=== PATIENT | female | born 1965 | race Caucasian/White ===

== ENCOUNTER → 2017-02-25 | Outpatient (CLI) | payer OTHER ==
[~2017-02-25] VITALS: Ht 170.2 cm; Wt 118.8 kg
[~2017-02-25] MED LIST: LIDOCAINE 2% INJ 100 MG/5 ML SDV (FOR ANES.) As Ordered ONE; NS 500 ML IV SCH; PREV15CA18 PO; PROPOFOL 200 MG/20 ML VIAL As Ordered ONE; ZOMI2.5T4 PO; fentaNYL 100 MCG/2 ML INJECTION (J3010) As Ordered ONE
--- NOTE | 2017-02-25 08:17 | ROOR ---
Patient Name: Smitha Nettles Procedure Date: 02/25/2017 7:39 AM Date of : 1965 Age: 51 Room: [facility] Gender: Female Note Status: Finalized Procedure: Upper Endoscopy + Biopsies Indications: Heartburn, Exclusion of Batista's esophagus Providers: Dainel Ortez MD Referring MD: Chauncey Reyes MD Requesting Provider: Medicines: Monitored Anesthesia Care Complications: No immediate complications. Procedure: Pre-Anesthesia Assessment: - The heart rate, respiratory rate, oxygen saturations, blood pressure, adequacy of pulmonary ventilation, and response to care were monitored throughout the procedure. The Endoscope was introduced through the mouth, and advanced to the second part of duodenum. The upper GI endoscopy was accomplished without difficulty. The patient tolerated the procedure well. Findings: The Z-line was irregular and was found 35 cm from the incisors. Multiple biopsies were obtained with cold forceps for evaluation to rule out Batista's Esophagus randomly at the gastroesophageal junction. A small hiatal hernia was present. No other significant abnormalities were identified in a careful examination of the stomach. The exam of the duodenum was otherwise normal. Impression: - Z-line irregular, 35 cm from the incisors. - Small hiatal hernia. - Multiple biopsies were obtained at the gastroesophageal junction. - The examination was otherwise normal. Recommendation: - Patient has a contact number available for emergencies. The signs and symptoms of potential delayed complications were discussed with the patient. Return to normal activities tomorrow. Written discharge instructions were provided to the patient. - High fiber diet. - Discharge patient to home. - Follow an antireflux regimen. - Continue present medications. - Await pathology results. - Telephone GI clinic for pathology results in 1 week. - Check Portal Online for Path Results.([email or web address]) - Return to referring physician. - Repeat upper endoscopy for surveillance based on pathology results. - The findings and recommendations were discussed with the patient's family. Daniel Ortez MD Daniel Ortez MD 02/25/2017 8:17:39 AM This report has been signed electronically. Number of Addenda: 0 Note Initiated On: 02/25/2017 7:39 AM Estimated Blood Loss: Estimated blood loss: none.
--- NOTE | 2017-02-25 08:21 | ROOR ---
Patient Name: Smitha Nettles Procedure Date: 02/25/2017 7:39 AM Date of : 1965 Age: 51 Room: [facility] Gender: Female Note Status: Finalized Procedure: Total Colonoscopy to Cecum + Biopsy Polypectomy Indications: High risk colon cancer surveillance: Personal history of colonic polyps, Last colonoscopy: 2013 Providers: Daniel Ortez MD Referring MD: Chauncey Reyes MD Requesting Provider: Medicines: Monitored Anesthesia Care Complications: No immediate complications. Procedure: Pre-Anesthesia Assessment: - The heart rate, respiratory rate, oxygen saturations, blood pressure, adequacy of pulmonary ventilation, and response to care were monitored throughout the procedure. The Colonoscope was introduced through the anus and advanced to the cecum, identified by appendiceal orifice and ileocecal valve. The colonoscopy was performed without difficulty. The patient tolerated the procedure well. The quality of the bowel preparation was good. Findings: The perianal and digital rectal examinations were normal. A small polyp was found in the proximal ascending colon. The polyp was sessile. The polyp was removed with a jumbo cold forceps. Resection and retrieval were complete. Scattered small-mouthed diverticula were found in the recto-sigmoid colon, sigmoid colon and descending colon. Non-bleeding internal hemorrhoids were found during retroflexion. The hemorrhoids were small and Grade I (internal hemorrhoids that do not prolapse). The exam was otherwise without abnormality on direct and retroflexion views. Impression: - One small polyp in the proximal ascending colon, removed with a jumbo cold forceps. Resected and retrieved. - Diverticulosis in the recto-sigmoid colon, in the sigmoid colon and in the descending colon. - Non-bleeding internal hemorrhoids. - The examination was otherwise normal on direct and retroflexion views. - The exam was otherwise normal to the cecum. Recommendation: - Patient has a contact number available for emergencies. The signs and symptoms of potential delayed complications were discussed with the patient. Return to normal activities tomorrow. Written discharge instructions were provided to the patient. - High fiber diet. - Discharge patient to home. - Continue present medications. - Await pathology results. - Telephone GI clinic for pathology results in 1 week. - Repeat colonoscopy in 5 years for surveillance based on pathology results. - Return to referring physician. - The findings and recommendations were discussed with the patient's family. Daniel Ortez MD Daniel Ortez MD 02/25/2017 8:21:09 AM This report has been signed electronically. Number of Addenda: 0 Note Initiated On: 02/25/2017 7:39 AM Estimated Blood Loss: Estimated blood loss: none.
[2017-02-25 08:30] VITALS: BP 121/76
== END | disposition home or self-care (01) ==
LOC: M OPP 06:58
PROVIDERS: ATTEND Internal Medicine Gastroenterology
DX: Z12.11 Encounter for screening for malignant neoplasm of colon (principal); D12.2 Benign neoplasm of ascending colon; K57.30 Diverticulosis of large intestine without perforation or abscess without bleeding; K64.0 First degree hemorrhoids; Z86.010 Personal history of colon polyps; R12 Heartburn; K22.8 Other specified diseases of esophagus; K44.9 Diaphragmatic hernia without obstruction or gangrene; M19.90 Unspecified osteoarthritis, unspecified site; G43.909 Migraine, unspecified, not intractable, without status migrainosus; R06.83 Snoring; E66.9 Obesity, unspecified; F17.210 Nicotine dependence, cigarettes, uncomplicated; Z89.421 Acquired absence of other right toe(s); Z79.899 Other long term (current) drug therapy; Z80.0 Family history of malignant neoplasm of digestive organs
CPT/HCPCS: 43239; 45380; 88305; J3010

== ENCOUNTER → 2019-03-15 | Outpatient (REF) | payer OTHER ==
[~2019-03-15] MED LIST changes: -LIDOCAINE 2% INJ 100 MG/5 ML SDV (FOR ANES.) As Ordered ONE; -NS 500 ML IV SCH; -PROPOFOL 200 MG/20 ML VIAL As Ordered ONE; -fentaNYL 100 MCG/2 ML INJECTION (J3010) As Ordered ONE
[2019-03-18 00:06] LABS: Lyme Disease IgG/IgM Antibodie <0.91 ISR (0.00-0.90); Lyme Disease IgM Ab Quantitati <0.80 index (0.00-0.79)
== END ==
LOC: M LAB REF 12:24
PROVIDERS: ATTEND Nurse Practitioner Adult Health
DX: R50.9 Fever, unspecified (principal); M25.50 Pain in unspecified joint; R53.83 Other fatigue

== ENCOUNTER → 2019-04-02 | Outpatient (CLI) | payer OTHER ==
--- NOTE | 2019-04-03 03:57 | REP ---
Clinical: Shortness of breath and chest pain . Comparison: None . Findings: The mediastinum and cardiac silhouette are stable and within normal limits for portable technique. The lung goel are clear without acute consolidation, effusion, or pneumothorax. Skeletal structures are intact. Impression: No acute cardiopulmonary process appreciated. Electronically Signed by Hussain Trujillo MD 04/03/2019 03:49 A
== END ==
LOC: M WUC 16:46
PROVIDERS: ATTEND Nurse Practitioner Adult Health
DX: R06.02 Shortness of breath (principal); R07.9 Chest pain, unspecified

== ENCOUNTER → 2019-12-06 | Outpatient (CLI) | payer OTHER | LOC: M LABSMTC 12:33 | PROVIDERS: ATTEND Family Medicine | DX: Z11.59 Encounter for screening for other viral diseases (principal); Z20.828 Contact with and (suspected) exposure to other viral communicable diseases ==

== ENCOUNTER → 2020-06-04 | Outpatient (REF) | payer OTHER ==
[2020-06-06 15:10] LABS: Lyme Disease IgG/IgM Antibodie <0.91 ISR (0.00-0.90); Lyme Disease IgM Ab Quantitati <0.80 index (0.00-0.79)
== END ==
LOC: M LAB REF 17:15
PROVIDERS: ATTEND Nurse Practitioner Adult Health
DX: Z11.59 Encounter for screening for other viral diseases (principal); R53.83 Other fatigue

== ENCOUNTER → 2021-07-31 | Outpatient (CLI) | payer OTHER ==
[~2021-07-31] MED LIST changes: -PREV15CA18 PO; +PREV15CA24 PO
--- NOTE | 2021-08-06 07:31 | HOLTMON ---
[facility] Test Date: 2021-07-31 Pat Name: CARLOS DIEHL Department: Room: - Gender: Female Patient Information Coordinator: kari : 1965 Requested By: Swati Pool Order Number: [id number] Reading MD: Chauncey Reyes Interpretive Statements MOTHER - A-FIB FATHER - A-FIB, PNEUMONIA BROTHER - A-FIB NO SYMPTOMS REPORTED Heart rate varied between 47 and 123 bpm with minimal ventricular and no supraventricular ectopy and no runs. No atrial fibrillation was seen. No significant diary entries. Unremarkable Holter monitor. Electronically Signed on 08-06-2021 7:31:23 EST by Chauncey Reyes
== END ==
LOC: M EKG 13:16
PROVIDERS: ATTEND Nurse Practitioner Adult Health
DX: R00.0 Tachycardia, unspecified (principal)

== ENCOUNTER → 2022-02-24 | Outpatient (REF) | payer OTHER | LOC: M LAB REF 12:04 | PROVIDERS: ATTEND Nurse Practitioner Adult Health | DX: R53.83 Other fatigue (principal) ==

== ENCOUNTER → 2022-02-25 | Outpatient (CLI) | payer OTHER | LOC: M WUC 12:56 | PROVIDERS: ATTEND Nurse Practitioner Adult Health | DX: R06.02 Shortness of breath (principal) ==

== ENCOUNTER → 2022-04-20 | Outpatient (REF) | payer OTHER ==
[2022-04-20 17:43] LABS: PHOSPHORUS LEVEL 2.8 MG/DL (2.5-4.9); URIC ACID 8.6 MG/DL (2.6-6.0)
== END ==
LOC: M LAB REF 16:13
PROVIDERS: ATTEND Nurse Practitioner Adult Health
DX: N18.31 Chronic kidney disease, stage 3a (principal)

== ENCOUNTER → 2022-05-11 | Outpatient (CLI) | payer OTHER | LOC: M RAD 11:20 | PROVIDERS: ATTEND Internal Medicine Nephrology | DX: N18.31 Chronic kidney disease, stage 3a (principal); N17.9 Acute kidney failure, unspecified ==

== ENCOUNTER → 2022-07-30 | Outpatient (REF) | payer OTHER ==
[2022-07-30 18:49] LABS: APPEARANCE, URINE MANUAL CLEAR (CLEAR); COLOR, URINE MANUAL YELLOW (YELLOW)
[2022-07-30 18:50] LABS: BILIRUBIN, URINE MANUAL NEGATIVE (NEGATIVE); BLOOD URINE MANUAL NEGATIVE (NEGATIVE); GLUCOSE, URINE (UA) MANUAL NEGATIVE (NEGATIVE); KETONE, URINE MANUAL NEGATIVE (NEGATIVE); LEUKOCYTE ESTERASE, URINE MAN TRACE (NEGATIVE); NITRITE, URINE MANUAL NEGATIVE (NEGATIVE); PROTEIN, URINE MANUAL NEGATIVE (NEGATIVE); SPECIFIC GRAVITY,URINE MANUAL 1.025 (1.002-1.035); UROBILINOGEN, URINE MANUAL NORMAL (NORMAL)
[2022-07-30 19:24] LABS: BACTERIA, URINE SMALL AMOUNT; HYALINE CAST, URINE NONE SEEN /lpf (0-1); MUCUS, URINE LARGE AMOUNT (NEGATIVE); SQUAMOUS EPITHELIAL CELL URINE LARGE AMOUNT /hpf (SMALL AMT)
[2022-07-30 19:26] LABS: TOTAL PROTEIN,RANDOM URINE 11.2 MG/DL (0.0-14.0)
[2022-07-30 19:43] LABS: CREATININE,RANDOM URINE 231.9 MG/DL
== END ==
LOC: M LAB REF 16:40
PROVIDERS: ATTEND Nurse Practitioner Adult Health
DX: N18.31 Chronic kidney disease, stage 3a (principal); E87.6 Hypokalemia

== ENCOUNTER → 2022-08-03 | Outpatient (POV) | payer OTHER ==
[~2022-08-03] VITALS: Ht 170.2 cm; Wt 101.8 kg
[2022-08-03 08:40] VITALS: BP 150/105
== END ==
LOC: M IRPOV 08:36
PROVIDERS: ATTEND Radiology Diagnostic Radiology
DX: I12.0 Hypertensive chronic kidney disease with stage 5 chronic kidney disease or end stage renal disease (principal); N18.6 End stage renal disease; E78.5 Hyperlipidemia, unspecified; Z79.82 Long term (current) use of aspirin; Z87.891 Personal history of nicotine dependence; Z79.899 Other long term (current) drug therapy

== ENCOUNTER → 2022-10-04 | Outpatient (REF) | payer OTHER ==
[~2022-10-04] MED LIST changes: +ACET1TAB55 PO; +BIOT5TAB3 PO; +OMEP40CA4 PO; +PRAV20TA2 PO; +SPIR-10 PO; +VALS1TAB66 PO; +VIT D PO
== END ==
LOC: M LAB REF 11:12
PROVIDERS: ATTEND Nurse Practitioner Adult Health
DX: Z01.818 Encounter for other preprocedural examination (principal)

== ENCOUNTER → 2022-10-05 | Outpatient (REF) | payer OTHER ==
[2022-10-05 17:13] LABS: INR 1.01; PROTHROMBIN TIME 13.5 SECONDS (12.5-14.5)
== END ==
LOC: M LAB REF 15:56
PROVIDERS: ATTEND Nurse Practitioner Adult Health
DX: Z01.818 Encounter for other preprocedural examination (principal)

== ENCOUNTER → 2022-10-07 | Outpatient (CLI) | payer OTHER ==
[~2022-10-07] MED LIST changes: +LIDOCAINE 1% MDV 20ML VIAL As Ordered ONE; +MIDAZOLAM INJ 2MG/2ML VIAL As Ordered ONE; +NS 1,000 ML IV SCH; +diphenhydrAMINE 50MG/ML VIAL As Ordered ONE; +fentaNYL 100 MCG/2 ML INJECTION As Ordered ONE
[2022-10-07 13:00] VITALS: BP 147/93
== END ==
LOC: M IRPRO 09:00
PROVIDERS: ATTEND Internal Medicine Nephrology
DX: N17.9 Acute kidney failure, unspecified (principal)
CPT/HCPCS: 50200; 77012; 88300; 99152; J1200; J2250; J3010

== ENCOUNTER → 2022-10-25 | Outpatient (REF) | payer OTHER ==
[~2022-10-25] MED LIST changes: -LIDOCAINE 1% MDV 20ML VIAL As Ordered ONE; -MIDAZOLAM INJ 2MG/2ML VIAL As Ordered ONE; -NS 1,000 ML IV SCH; -diphenhydrAMINE 50MG/ML VIAL As Ordered ONE; -fentaNYL 100 MCG/2 ML INJECTION As Ordered ONE
== END ==
LOC: M LAB REF 12:13
PROVIDERS: ATTEND Physician Assistant Medical
DX: R30.0 Dysuria (principal)

== ENCOUNTER → 2025-01-14 | Outpatient (REF) | payer OTHER | LOC: M LAB REF 13:25 | PROVIDERS: ATTEND Physician Assistant Medical | DX: M25.50 Pain in unspecified joint (principal); R50.9 Fever, unspecified ==

== ENCOUNTER → 2025-04-04 | Outpatient (REF) | payer OTHER ==
[~2025-04-04] MED LIST changes: -PRAV20TA2 PO; +PRAV20TA78 PO
== END ==
LOC: M LAB REF 12:18
PROVIDERS: ATTEND Nurse Practitioner Adult Health
DX: R50.9 Fever, unspecified (principal)